=== PATIENT | male | born 1970 | race Caucasian/White ===

== ENCOUNTER 2025-01-10 18:02 | Emergency (ER) | payer OTHER, SELFPAY ==
[2025-01-10 18:03] VITALS: BP 112/83; PULSE 98; RESP 17; TEMP 36.7; O2SAT 95; BMI 26.4
--- NOTE | 2025-01-10 18:07 | CTR_ITS ---
PROCEDURE INFORMATION: Exam: CT Chest With Contrast; Diagnostic Exam date and time: 01/10/2025 7:01 PM Age: 54 years old Clinical indication: Injury or trauma; Fall; Blunt trauma (contusions or hematomas); Injury date: 01/10/2025; Injury details: PT fell off horse; Per EMS PT was thrown from a horse, left shoulder pain, upper back pain and rib pain. TECHNIQUE: Imaging protocol: Diagnostic computed tomography of the chest with contrast. Radiation optimization: All CT scans at this facility use at least one of these dose optimization techniques: automated exposure control; mA and/or kV adjustment per patient size (includes targeted exams where dose is matched to clinical indication); or iterative reconstruction. Contrast material: [id number]; Contrast volume: 100 ml; Contrast route: INTRAVENOUS (IV); COMPARISON: CT cervical spin wo con* [id number] 01/10/2025 6:56 PM RADIATION DOSE METRICS: Total DLP (mGy-cm): 1447.8 FINDINGS: Lungs: Contusions in both posterior lungs with small posttraumatic subpleural blebs in the left posterior lung.. Pleural spaces: Unremarkable. No pneumothorax. No pleural effusion. Heart: Unremarkable. No cardiomegaly. No pericardial effusion. Lymph nodes: Unremarkable. No enlarged lymph nodes. Vasculature: Unremarkable. No aortic aneurysm. Bones/joints: Idiopathic S-shaped scoliosis. Acute left posterolateral 4th, 5th, 6, 7th, 8th rib fractures. Healed left posterolateral 9th rib fracture. Acute hairline fracture(s) through the left scapular blade. Soft tissues: Unremarkable. PROCEDURE INFORMATION: Exam: CT Abdomen And Pelvis With Contrast Exam date and time: 01/10/2025 7:01 PM Age: 54 years old Clinical indication: Injury or trauma; Fall; Blunt trauma (contusions or hematomas); Injury date: 01/10/2025; Injury details: PT fell off horse; Per EMS PT was thrown from a horse, left shoulder pain, upper back pain and rib pain. TECHNIQUE: Imaging protocol: Computed tomography of the abdomen and pelvis with contrast. Radiation optimization: All CT scans at this facility use at least one of these dose optimization techniques: automated exposure control; mA and/or kV adjustment per patient size (includes targeted exams where dose is matched to clinical indication); or iterative reconstruction. Contrast material: [id number]; Contrast volume: 100 ml; Contrast route: INTRAVENOUS (IV); COMPARISON: CT thoracic spin wo con* [id number] 01/10/2025 7:01 PM RADIATION DOSE METRICS: Total DLP (mGy-cm): 1447.8 FINDINGS: Liver: Normal. No mass. Gallbladder and biliary ducts: Normal. No calcified stones. No ductal dilation. Pancreas: Normal. No ductal dilation. Spleen: Normal. No splenomegaly. Adrenal glands: Normal. No mass. Kidneys and ureters: Normal. No hydronephrosis. Stomach and bowel: Unremarkable. No obstruction. No mucosal thickening. Appendix: No evidence of appendicitis. Intraperitoneal space: Unremarkable. No free air. No significant fluid collection. Vasculature: One or more calcified pelvic phleboliths. Lymph nodes: Unremarkable. No enlarged lymph nodes. Urinary bladder: Unremarkable as visualized. Reproductive: Unremarkable as visualized. Bones/joints: Mild lumbar levoscoliosis. Partial lumbarization of S1 with left transverse process and unilateral right-sided S1-S2 articulation/fusion which can be a source of low back pain. Soft tissues: Unremarkable. CT/CT chest abdpel w/*[id number] IMPRESSION: 1. Acute left posterolateral 4th, 5th, 6, 7th, 8th rib fractures. 2. Contusions in both posterior lungs with small posttraumatic subpleural blebs in the left posterior lung.. 3. Acute hairline fracture(s) through the left scapular blade. IMPRESSION: No acute findings.
--- NOTE | 2025-01-10 18:07 | CTR_ITS ---
PROCEDURE INFORMATION: Exam: CT Head Without Contrast Exam date and time: 01/10/2025 6:56 PM Age: 54 years old Clinical indication: Injury or trauma; Fall; Blunt trauma (contusions or hematomas); Consciousness not specified; Injury details: PT fell off horse; Per EMS PT was thrown from a horse, left shoulder pain, upper back pain and rib pain. ; Additional info: Fall, head injury TECHNIQUE: Imaging protocol: Computed tomography of the head without contrast. Radiation optimization: All CT scans at this facility use at least one of these dose optimization techniques: automated exposure control; mA and/or kV adjustment per patient size (includes targeted exams where dose is matched to clinical indication); or iterative reconstruction. COMPARISON: CT cervical spin wo con* [id number] 01/10/2025 6:56 PM RADIATION DOSE METRICS: Total DLP (mGy-cm): 1175.2 FINDINGS: Brain: Normal. No hemorrhage. Unremarkable white matter. No mass effect. Cerebral ventricles: No ventriculomegaly. Paranasal sinuses: Visualized sinuses are unremarkable. No fluid levels. Mastoid air cells: Visualized mastoid air cells are well aerated. Bones: Unremarkable. No acute fracture. Soft tissues: Unremarkable. CT/CT head wo con* [id number] IMPRESSION: No acute intracranial abnormality.
--- NOTE | 2025-01-10 18:07 | CTR_ITS ---
PROCEDURE INFORMATION: Exam: CT Cervical Spine Without Contrast Exam date and time: 01/10/2025 6:56 PM Age: 54 years old Clinical indication: Injury or trauma; Fall; Blunt trauma; Per EMS PT was thrown from a horse, left shoulder pain, upper back pain and rib pain. ; Additional info: Fall, neck pain TECHNIQUE: Imaging protocol: Computed tomography of the cervical spine without contrast. Radiation optimization: All CT scans at this facility use at least one of these dose optimization techniques: automated exposure control; mA and/or kV adjustment per patient size (includes targeted exams where dose is matched to clinical indication); or iterative reconstruction. COMPARISON: CT head wo con* [id number] 01/10/2025 6:56 PM RADIATION DOSE METRICS: Total DLP (mGy-cm): 238.4 FINDINGS: Bones: There are degenerative changes in the cervical spine with mild narrowing of the lower cervical disc spaces and with prominent anterior osteophytes at C4-C5, C5-C6 and C6-C7. There is uncovertebral hypertrophy which encroaches upon neural foramina on the left C4-C5 and C5-C6 and on the right at C5-C6. No fracture is identified. Lungs: Lung apices are normal. Soft tissues: Prevertebral soft tissues are unremarkable. CT/CT cervical spin wo con* [id number] IMPRESSION: 1. Degenerative changes. 2. No fracture is identified.
--- NOTE | 2025-01-10 18:20 | ED_ITS ---
HPI - Trauma 2 General: Chief Complaint: Trauma Stated Complaint: thrown from horse - left shoulder/upper back pain Time Seen by Provider: 01/10/25 18:06 History of Present Illness: This is a healthy 54-year-old man who presents emergency room by ambulance after he was thrown from a horse that he was trying to get on. He is having left posterior back pain/rib pain, left shoulder pain. He had his head but not hard he says. No loss of consciousness. No neck pain. No shortness of breath. He does have pain with inspiration. No oxygen requirements. No headache. No nausea or vomiting. No altered mental status. No focal motor deficits. Related Data Allergies Allergy/AdvReac Type Severity Reaction Status Date / Time No Known Allergies Allergy Verified 01/10/25 19:23 Review of Systems 2 Narrative: Constitutional symptoms: Negative except as documented in HPI. Skin symptoms: Negative except as documented in HPI. Eye symptoms: Negative except as documented in HPI. ENMT symptoms: Negative except as documented in HPI. Respiratory symptoms: Negative except as documented in HPI. Cardiovascular symptoms: Negative except as documented in HPI. Gastrointestinal symptoms: Negative except as documented in HPI. Genitourinary symptoms: Negative except as documented in HPI. Musculoskeletal symptoms: Negative except as documented in HPI. Neurologic symptoms: Negative except as documented in HPI. Psychiatric symptoms: Negative except as documented in HPI. Endocrine symptoms: Negative except as documented in HPI. Physical Exam 2 Narrative: EXAM NARRATIVE: General: Alert, no acute distress. Skin: Warm, dry. Head: Normocephalic, atraumatic. Neck: Supple, trachea midline. Eye: Extraocular movements are intact. Ears, nose, mouth and throat: mucosa moist. Cardiovascular: Regular, Normal peripheral perfusion. Respiratory: Lungs are clear to auscultation, respirations are non-labored, breath sounds are equal, Symmetrical chest wall expansion. Tenderness over the left posterior ribs. Pain with left arm movement but no obvious deformity Gastrointestinal: Soft, Nontender, Non distended Musculoskeletal: Normal ROM, no deformity. Neurological: Alert and oriented, No focal neurological deficit observed. Psychiatric: Cooperative, appropriate mood & affect. Course 2 Vital Signs: Vital signs: Vital Signs Temperature 98.0 F 01/10/25 18:03 Pulse Rate 98 01/10/25 18:03 Respiratory Rate 17 01/10/25 18:03 Blood Pressure 112/83 01/10/25 18:03 Pulse Oximetry 95 01/10/25 18:03 MDM - Trauma Medical Decision Making Medical decision making: Differential diagnosis including but not limited to and based on the above HPI, review of systems and physical exam: In this patient with at least moderate trauma CT of the head, C-spine. CT chest abdomen pelvis. Orders placed to evaluate differential diagnosis based on the above differential, HPI and physical exam Lab Review: Laboratory results were reviewed and interpreted by myself the emergency room physician. Mild leukocytosis. No anemia. Renal function is a bit elevated at 1.3 for his creatinine. Lactate is mildly elevated at 2.3. CT head: No acute intracranial process. No intracranial hemorrhage, no evidence of infarct. No evidence of acute fracture. This was reviewed and interpreted by myself the emergency room physician. I also reviewed the radiology report. CT of the cervical spine: No fracture. Good alignment. No step-offs. This was reviewed and interpreted by myself the emergency room physician. I also reviewed the radiologist report. CT thoracic spine: Multiple rib fractures. 4th, 5th, 6th, 7th and 8th rib fractures. Contusions in both posterior lungs with possible small loculated pneumothorax. Blebs. This was reviewed and interpreted by myself the emergency room physician. I also reviewed the radiology report. CT of the chest abdomen pelvis with contrast: Rib fractures. Contusions of the lungs. Traumatic blebbing. Hairline fracture of the left scapular blade. This was reviewed and interpreted by myself the emergency room physician. I also reviewed the radiology report. I reviewed the patient's medical record. No previous records here Consultation: I spoke with Dr. Reynolds who is on-call for general surgery. He feels like this is a trauma that is beyond the level that we can care for here. He recommends transfer. Consultation: I spoke with Dr. Carrillo at . Patient requested transfer to that area because he is from there. She accepts the patient and recommends air EVAC. Reexamination: Patient not currently requiring any oxygen. No altered mental status. No focal motor deficits. Assessment and plan: Multiple rib fractures Pulmonary contusion Traumatic blebbing Scapular fracture ? Hunter in the emergency room -I discussed the patient with the accepting physician on-call. - Discussed findings and plan with patient. Answered any questions. - All laboratory values were reviewed and interpreted personally by myself, the ER physician - All imaging was reviewed and interpreted personally by myself, the ER physician. - Evaluation and treatment of this problem were appropriate in the emergency setting Critical Care: -I spent a total of >37 minutes of critical care time managing the patient, independent of any other practitioner. -The time involved in the performance of separately reportable procedures was not counted towards critical care time.-Related to critical car Lab Data 01/10/25 18:32 01/10/25 18: Radiology Impressions Cervical Spine CT 01/10/25 18:07 IMPRESSION: 1. Degenerative changes. 2. No fracture is identified. Chest/Abdomen/Pelvis CT 01/10/25 18:07 IMPRESSION: 1. Acute left posterolateral 4th, 5th, 6, 7th, 8th rib fractures. 2. Contusions in both posterior lungs with small posttraumatic subpleural blebs in the left posterior lung.. 3. Acute hairline fracture(s) through the left scapular blade. IMPRESSION: No acute findings. Head CT 01/10/25 18:07 IMPRESSION: No acute intracranial abnormality. Thoracic Spine CT 01/10/25 19:02 IMPRESSION: 1. Acute left posterolateral 4th, 5th, 6, 7th, 8th rib fractures. 2. Contusions in both posterior lungs with possible small loculated pneumothoraces in the left posterior lung versus subpleural blebs. Laboratory Results WBC 12.42 10^3/uL (3.29-11.43) H 01/10/25 18: RBC 4.78 10^6/uL (3.85-5.65) 01/10/25 18: Hgb 15.00 g/dL (11.27-16.99) 01/10/25 18: Hct 42.8 % (37-53) 01/10/25 18: MCV 89.5 fl (82-101) 01/10/25 18: MCH 31.4 pg (27-33) 01/10/25 18: MCHC 35.0 g/dL (30-55) 01/10/25 18: RDW 12.9 % (12.1-15.1) 01/10/25 18: Plt Count 214 10^3/cmm (157-399) 01/10/25 18:32 MPV 9.5 fL (7.4-10.4) 01/10/25 18: Neut % (Auto) 82.6 % 01/10/25 18:32 Lymph % (Auto) 8.8 % 01/10/25 18:32 [place] % (Auto) 7.6 % 01/10/25 18: Eos % (Auto) 0.1 % 01/10/25 18: Baso % (Auto) 0.4 % 01/10/25 18: Neut # (Auto) 10.27 10^3/uL (1.8-7.7) H 01/10/25 18: Lymph # (Auto) 1.1 10^3/uL (0.8-4.8) 01/10/25 18:32 [place] # (Auto) 0.9 10^3/uL (0.2-0.9) 01/10/25 18: Eos # (Auto) 0.0 10^3/uL (0.0-0.8) 01/10/25 18: Baso # (Auto) 0.1 10^3/uL (0.0-0.1) 01/10/25: Nucleated RBC % (auto) 0 % 01/10/25: Nucleated RBCs # 0.0 /100WBC 01/10/25 18:32 Sodium 134 mmol/L (136-145) L 01/10/25 18:32 Potassium 3.6 mmol/L (3.5-5.1) 01/10/25 18: Chloride 95 mmol/L (98-107) L 01/10/25 18:32 Carbon Dioxide 23 mmol/L (22-29) 01/10/25 18:32 Anion Gap 19.6 (5-19) H 01/10/25 18:32 BUN 12 mg/dL (6-20) 01/10/25 18:32 Creatinine 1.3 mg/dL (0.7-1.2) H 01/10/25 18:32 GFR Calculation 57.1 mL/min (90-130) L 01/10/25 18:32 Glucose 107 mg/dL (65-115) 01/10/25 18:32 Calculated Osmolality 278 mOsm/kg (285-295) L 01/10/25 18:32 Lactic Acid 2.3 mmol/L (0.5-2.2) H 01/10/25 18:32 Calcium 9.1 mg/dL (8.5-10.5) 01/10/25 18:32 Total Bilirubin 0.7 mg/dL (0.15-1.2) 01/10/25 18:32 AST 35 U/L (0-40) 01/10/25 18:32 ALT 22 U/L (0-41) 01/10/25 18:32 Alkaline Phosphatase 160 U/L (40-130) H 01/10/25 18:32 Total Protein 7.2 g/dL (6.6-8.7) 01/10/25 18:32 Albumin 4.2 g/dL (3.5-5.2) 01/10/25 18:32 Globulin 3.0 g/dL (1.3-4.6) 01/10/25 18:32 All radiology interpretation(s) finalized by discharge Discharge Plan Discharge Patient Disposition: Xfer Short-Term Hosp Clinical Impression: Multiple rib fractures, Bilateral pulmonary contusion Condition: Stable Print Language: Emirati Coding Level of Care Code 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
[2025-01-10 18:46] LABS: Hematocrit 42.8 % (37-53); Hemoglobin 15.00 g/dL (11.27-16.99); Mean Corpuscular HGB Conc 35.0 g/dL (30-55); Mean Corpuscular Hemoglobin 31.4 pg (27-33); Mean Corpuscular Volume 89.5 fl (82-101); Nucleated Red Blood Cells % 0 %; Platelet Count 214 10^3/cmm (157-399); Red Blood Count 4.78 10^6/uL (3.85-5.65); White Blood Count 12.42 10^3/uL (3.29-11.43)
[2025-01-10 19:02] LABS: Lactic Sepsis W/Reflex 2.3 mmol/L (0.5-2.2)
--- NOTE | 2025-01-10 19:02 | CTR_ITS ---
PROCEDURE INFORMATION: Exam: CT Thoracic Spine Without Contrast Exam date and time: 01/10/2025 7:01 PM Age: 54 years old Clinical indication: Injury or trauma; Fall; Injury date: 01/10/2025; Injury details: PT fell off horse; Per EMS PT was thrown from a horse, left shoulder pain, upper back pain and rib pain. ; Additional info: Traumatic upper back pain TECHNIQUE: Imaging protocol: Computed tomography of the thoracic spine without contrast. Radiation optimization: All CT scans at this facility use at least one of these dose optimization techniques: automated exposure control; mA and/or kV adjustment per patient size (includes targeted exams where dose is matched to clinical indication); or iterative reconstruction. COMPARISON: CT cervical spin wo con* [id number] 01/10/2025 6:56 PM RADIATION DOSE METRICS: Total DLP (mGy-cm): 1201 FINDINGS: Bones/joints: Idiopathic S-shaped scoliosis. Acute left posterolateral 4th, 5th, 6, 7th, 8th rib fractures. Healed left posterolateral 9th rib fracture. Soft tissues: Unremarkable. Pleural spaces: Contusions in both posterior lungs with possible small loculated pneumothoraces in the left posterior lung versus subpleural blebs. CT/CT thoracic spin wo con* [id number] IMPRESSION: 1. Acute left posterolateral 4th, 5th, 6, 7th, 8th rib fractures. 2. Contusions in both posterior lungs with possible small loculated pneumothoraces in the left posterior lung versus subpleural blebs.
[2025-01-10 19:06] LABS: Alanine Aminotransferase 22 U/L (0-41); Albumin Level 4.2 g/dL (3.5-5.2); Alkaline Phosphatase 160 U/L (40-130); Anion Gap 19.6 (5-19); Aspartate Amino Transferase 35 U/L (0-40); Blood Urea Nitrogen 12 mg/dL (6-20); Calcium 9.1 mg/dL (8.5-10.5); Carbon Dioxide 23 mmol/L (22-29); Chloride 95 mmol/L (98-107); Creatinine Clr Calc Pharmacy 73.5363; Globulin 3.0 g/dL (1.3-4.6); Glucose 107 mg/dL (65-115); Osmolality Calculated 278 mOsm/kg (285-295); Potassium 3.6 mmol/L (3.5-5.1); Sodium 134 mmol/L (136-145); Total Protein 7.2 g/dL (6.6-8.7)
[2025-01-10] MEDS: iohexol 350 mg/mL 500 mL Btl (per mL) IV (19:09)
[2025-01-10] MEDS: ondansetron 2 mg/ML SDV 2 mL 4 MG IVP (19:44)
[2025-01-10] MEDS: HYDROmorphone 0.5 MG/0.5 ML INJ 1 MG IVP (19:47)
[2025-01-10 20:28] LABS: Reflex Lactate Order REFLEX LACTIC ORDERD
[2025-01-10 20:36] VITALS: BP 115/69; PULSE 97; O2SAT 98
[2025-01-10 21:18] VITALS: BP 115/70; PULSE 96; O2SAT 98
== END 2025-01-10 21:21 | disposition short-term general hospital (02) ==
PROVIDERS: Emergency Provider Emergency Medicine
DX: S22.42XA Multiple fractures of ribs, left side, initial encounter for closed fracture (principal); S27.322A Contusion of lung, bilateral, initial encounter; V80.010A Animal-rider injured by fall from or being thrown from horse in noncollision accident, initial encounter
CPT/HCPCS: 36415; 70450; 71260; 72125; 72128; 74177; 80053; 83605; 85025; 96374; 96375; 99285; J1171; J2405; J7030